=== PATIENT | female | born 1980 | race Asian ===

== ENCOUNTER 2019-06-04 09:37 | Outpatient (CLI) | payer BC | END 2019-06-04 23:59 | disposition home or self-care (01) | LOC: RAD 09:37 | PROVIDERS: ATTEND Family Medicine | DX: R05 Cough (principal); M47.819 Spondylosis without myelopathy or radiculopathy, site unspecified | CPT/HCPCS: 71046 ==

== ENCOUNTER 2020-06-14 16:14 | Outpatient (CLI) | payer BC | END 2020-06-14 23:59 | disposition home or self-care (01) | LOC: RAD 16:14 | PROVIDERS: ATTEND Family Medicine | DX: R05 Cough (principal); M47.814 Spondylosis without myelopathy or radiculopathy, thoracic region | CPT/HCPCS: 71046 ==

== ENCOUNTER 2022-09-28 12:15 | Inpatient (IN) | payer BC ==
[~2022-09-28] VITALS: Ht 154.9 cm; Wt 58.5 kg
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
[2022-09-28 17:45] VITALS: BP 136/91
[2022-09-28] MEDS ORDERED: ZINC50TA69 PO (18:15)
[2022-09-28] MEDS ORDERED: CHOL100043 PO (18:15)
[2022-09-28] MEDS ORDERED: BIOT1TAB PO (18:15)
[2022-09-28] MEDS ORDERED: AMLO-212 PO (18:15)
[2022-09-28] MEDS ORDERED: HYDROMORPHONE 1 MG/1 ML DISP.SYRIN IV ONE (18:30)
--- NOTE | 2022-09-28 19:15 | NUR ---
RN NOTE RECEIVED PT FOR CONTINUITY OF CARE. PATIENT A/OX4 IN NO S/SX OF ACUTE DISTRESS AT THIS TIME; CURRENTLY ON ROOM AIR WITH 02 SAT >95% AT THIS TIME.WITH IV ACCESS ON R HAND#20 AND L FA#20 BOTH PATENT, INTACT AND FLUSHING WELL. NOTED MULTIPLE SKIN BRUISES AND DISCOLORATION. S/P ORIF RIGHT FEMUR WITH RODDING 09/26/22 WITH SURGICAL INCISION WITH ARACELY INTACT WITH SEROUS DRAINING. WILL ENSURE SAFETY MEASURES WITHIN THE SHIFT. PATIENT BED ALARM IS ON. HEAD OF BED ELEVATED. BED IS LOCKED, IN LOWEST POSITION AND SIDE RAILS UP. CALL LIGHT WITHIN REACH OF THE PATIENT. WILL CONTINUE TO MONITOR AND REASSESS FOR ANY CHANGES AND WILL CARRY OUT ANY ONGOING AND ACTIVE MD ORDER.
[2022-09-28 20:00] VITALS: BP 122/98
[2022-09-28] MEDS ORDERED: ZOLPIDEM TARTRATE 5 MG TABLET PO PRN (20:00)
[2022-09-28] MEDS ORDERED: ONDANSETRON HCL/PF 4 MG/2 ML VIAL IVP PRN (20:00)
[2022-09-28] MEDS ORDERED: ACETAMINOPHEN 325 MG TABLET PO PRN (20:00)
[2022-09-28] MEDS ORDERED: MAGNESIUM HYDROXIDE 30 ML UDC PO PRN (20:00)
[2022-09-28] MEDS ORDERED: MAG HYDROX/AL HYDROX/SIMETH 30 ML UDC PO PRN (20:00)
[2022-09-28] MEDS ORDERED: Z GUARD REMEDY 4 OZ OINT TP PRN (20:00)
[2022-09-28] MEDS: HYDROMORPHONE INJ 2 MG/ML DISP.SYRIN IV PRN (22:42)
[2022-09-29 04:00] VITALS: BP 117/75
--- NOTE | 2022-09-29 04:00 | NUR ---
RN NOTE PATIENT REMAINED TO BE IN NO SIGNS OF ACUTE RESPIRATORY DISTRESS, SAFE ENVIRONMENT MAINTAINED FOR PT. AM PATIENT CARE ASSISTANCE RENDERED. WILL CONTINUE TO MONITOR AND REASSESS FOR ANY CHANGES THROUGHOUT THE SHIFT.
[2022-09-29] MEDS: HYDROMORPHONE INJ 2 MG/ML DISP.SYRIN IV PRN ×4 (04:40→20:01)
--- NOTE | 2022-09-29 06:27 | NUR ---
RN NOTE PATIENT REMAINS IN ROOM IN NO SIGNS OF RESPIRATORY DISTRESS, PATIENT STILL ON ROOM AIR; TOLERATING WELL SATURATING @ >95% SP02. ON REGULAR DIET. SURGICAL SITE REMAIN SECURED AND INTACT NO SIGNS OF BLEEDING AND INFECTION. WITH PUREWICK CONNECTED TO SUCTION. SAFETY MEASURES IMPLEMENTED, BED IN LOWEST POSITION, LOCKED, SIDE RAILS UP, CALL LIGHT WITHIN REACH. ALL NEEDS AND ORDERS ADDRESSED DURING THE SHIFT. IV ACCESS MAINTAINED INTACT, SECURED AND FLUSHING WELL. ALL DUE MEDS GIVEN ORDERED & SCHEDULED, PRN PAIN MEDICATION GIVEN ; PATIENT TOLERATED WELL. PATIENT KEPT CLEAN AND COMFORTABLE WITHIN THE SHIFT. PLAN: ROUTINE VITALS SIGNS, PAIN MGT, NWB FOR NOW, FOR PODIATRY CONSULT, AND AM LABS. PATIENT ENDORSED TO INCOMING SHIFT RN WITH STABLE VITAL SIGN AND FOR CONTINUITY OF CARE.
[2022-09-29 06:55] LABS: BASOPHILS # (AUTO) 0.1 K/uL (0.0-0.2); BASOPHILS % (AUTO) 0.7 % (0.0-2.0); EOSINOPHILS % (AUTO) 5.4 % (0.0-6.0); HEMATOCRIT 35 % (33-45); HEMOGLOBIN 11.6 g/dL (11.5-14.8); LYMPHOCYTES # (AUTO) 1.8 K/uL (0.8-4.8); LYMPHOCYTES % (AUTO) 14.9 % (20.0-44.0); MEAN CORPUSCULAR HGB CONC 33 g/dl (31.0-36.0); MEAN CORPUSCULAR VOLUME 89 fL (82-100); MONOCYTES # (AUTO) 1.3 K/uL (0.1-1.30); MONOCYTES % (AUTO) 10.1 % (2.0-12.0); NEUTROPHILS # (AUTO) 8.5 K/uL (1.8-8.9); NEUTROPHILS % (AUTO) 68.9 % (43.0-81.0); PLATELET COUNT (AUTO) 303 K/uL (150-450); RED BLOOD CELL COUNT(AUTO) 3.94 MIL/uL (4.0-5.2); WHITE BLOOD COUNT (AUTO) 12.4 K/uL (4.3-11.0)
[2022-09-29 07:04] LABS: CALCIUM, SERUM 8.7 mg/dL (8.5-10.1); CREATININE 0.5 mg/dL (0.6-1.3); POTASSIUM 4.1 mmol/L (3.5-5.1)
--- NOTE | 2022-09-29 07:38 | NUR ---
RN OPENING NOTES RECEIVED PATIENT IN BED AWAKE, ALERT AND VERBALLY RESPONSIVE, DENIES ANY PAIN AT THIS MOMENT. REMAINS IN ROOM IN NO SIGNS OF RESPIRATORY DISTRESS, PATIENT STILL ON ROOM AIR; TOLERATING WELL SATURATING @ >95% SP02. ON REGULAR DIET. SURGICAL SITE REMAIN SECURED AND INTACT NO SIGNS OF BLEEDING AND INFECTION. WITH PUREWICK CONNECTED TO SUCTION. SAFETY MEASURES IMPLEMENTED, BED IN LOWEST POSITION, LOCKED, SIDE RAILS UP, CALL LIGHT WITHIN REACH. IV ACCESS MAINTAINED INTACT, SECURED AND FLUSHING WELL. NWB FOR NOW, FOR PODIATRY CONSULT. PLAN OF CARE CONTINUE.
[2022-09-29] MEDS: PANTOPRAZOLE 40 MG TABLET.DR PO SCH (07:44)
[2022-09-29] MEDS: DOCUSATE SODIUM 100 MG CAPSULE PO SCH ×2 (08:02→16:08)
--- NOTE | 2022-09-29 08:35 | NUR ---
WOUND CARE CONSULT: PT PRESENTS WITH DRY FACIAL ABRASIONS, DRY ABRASIONS TO RT ARM, MIDBACK ABRASION, AREAS OF SKIN DISCOLORATION AND BILATERAL LOWER EXTREMITY ORTHOPEDIC SPLINT DRESSINGS, ALL PRESENT ON ADMISSION. RECOMMENDATIONS MADE FOR SKIN PROTECTION. DISCUSSED WITH NURSING STAFF. PT IS ON IRVIN ISOFLEX LOW AIRLOSS BED. DR HENSLEY AND DR ROPER CALLED FOR SURGICAL AND DPM CONSULTS. MD IN AGREEMENT WITH PLAN OF CARE.
--- NOTE | 2022-09-29 10:30 | NUR ---
NOTED RIGHT HIP INCISION SITE WITH SANGUINEOUS DRAINAGE AND DRESSING IS SATURATED, INFORMED [employer] MEDICAL STAFF SERVICES MANAGER WITH ORDER TO LET WOUND CARE ASSESS THE INCISION SITE. INFORMED QUINTEN CAMPOS. QUINTEN CAMPOS SEEN THE PATIENT,REMOVED THE DRESSING, NOTED ARACELY INTACT, WITH ORDER TO CHANGED DRESSING AND PRN. DR. CASTANEDA AT THE BEDSIDE,WITH ORDER TO DO STAT CT OF THE RIGHT LOWER EXTREMITY, NOTED AND CARRIED OUT.
[2022-09-29] MEDS: IV LR 1000 ML 1,000 ML IV PRN (10:44)
[2022-09-29 12:00] VITALS: BP 131/95
--- NOTE | 2022-09-29 15:21 | NUR ---
URINE COLLECTED FOR TEST, CALLED LAB FOR VOCATIONAL REHABILITATION COUNSELOR
[2022-09-29] MEDS: HYDROCODONE/APAP 5/325MG TABLET PO PRN (15:46)
--- NOTE | 2022-09-29 18:18 | NUR ---
INFORMED TONYA INFORMATION CLERK [employer] THAT PATIENT'S PIV IS BOTH NOW WORKING STILL WAITING FOR MIDLINE INSERTION, WITH ORDER TO X1 NOW DILAUDID PO 1MG, NOTED AND CARRIED OUT.
[2022-09-29] MEDS ORDERED: HYDROMORPHONE HCL 2 MG TABLET PO ONE ×2 (18:30)
--- NOTE | 2022-09-29 18:37 | NUR ---
RN CLOSING NOTES PATIENT IN BED AWAKE, ALERT AND VERBALLY RESPONSIVE, VISITOR AT THE BEDSIDE. REMAINS IN ROOM IN NO SIGNS OF RESPIRATORY DISTRESS, PATIENT STILL ON ROOM AIR; TOLERATING WELL SATURATING @ >95% SP02. ON REGULAR DIET. RIGHT HIP SURGICAL SITE DRESSING NOTED C/D/I. BILATERAL LOWER EXTREMITY DRESSING C/D/I. NOTED WITH PUREWICK CONNECTED TO SUCTION. STILL WAITING FOR MIDLINE INSERTION. PATIENT C/O OF 10/10 GENERALIZED PAIN, 1 TIME DILAUDID 1MG PO GIVEN, WILL ENDORSE TO NIGHT NURSE FOR EFFECTIVENES. SAFETY MEASURES IMPLEMENTED, BED IN LOWEST POSITION, LOCKED, SIDE RAILS UP, CALL LIGHT WITHIN REACH. WILL ENDORSE TO NIGHT NURSE FOR ELIZABETH.
--- NOTE | 2022-09-29 19:13 | NUR ---
RN NOTE RECEIVED PT FOR CONTINUITY OF CARE. PATIENT A/OX4 IN NO S/SX OF ACUTE DISTRESS AT THIS TIME; CURRENTLY ON ROOM AIR WITH 02 SAT >95% AT THIS TIME.WITH IV ACCESS ON R HAND#[address] NEW IV ACCESS. NOTED MULTIPLE SKIN BRUISES AND DISCOLORATION. S/P ORIF RIGHT FEMUR WITH RODDING 09/26/22 WITH SURGICAL INCISION WITH ARACELY INTACT WITH SEROUS DRAINING. WILL ENSURE SAFETY MEASURES WITHIN THE SHIFT. PATIENT BED ALARM IS ON. HEAD OF BED ELEVATED. BED IS LOCKED, IN LOWEST POSITION AND SIDE RAILS UP. CALL LIGHT WITHIN REACH OF THE PATIENT. WILL CONTINUE TO MONITOR AND REASSESS FOR ANY CHANGES AND WILL CARRY OUT ANY ONGOING AND ACTIVE MD ORDER.
[2022-09-29 20:00] VITALS: BP 120/75
[2022-09-29] MEDS: ENOXAPARIN SODIUM 40 MG/0.4 ML DISP.SYRIN SQ SCH (20:02)
[2022-09-29] MEDS: NEOMY SULF/BACITRAC ZN/POLY 15 GM TUBE TP SCH (21:30)
[2022-09-30 04:00] VITALS: BP 106/74
[2022-09-30] MEDS: HYDROMORPHONE INJ 2 MG/ML DISP.SYRIN IV PRN ×5 (06:28→20:19)
[2022-09-30] MEDS: IV LR 1000 ML 1,000 ML IV PRN (06:32)
--- NOTE | 2022-09-30 06:37 | NUR ---
RN NOTE PATIENT REMAINS IN ROOM IN NO SIGNS OF RESPIRATORY DISTRESS, PATIENT STILL ON ROOM AIR; TOLERATING WELL SATURATING @ >95% SP02. ON REGULAR DIET. SURGICAL SITE REMAIN SECURED AND INTACT NO SIGNS OF BLEEDING AND INFECTION. WITH PUREWICK CONNECTED TO SUCTION. SAFETY MEASURES IMPLEMENTED, BED IN LOWEST POSITION, LOCKED, SIDE RAILS UP, CALL LIGHT WITHIN REACH. ALL NEEDS AND ORDERS ADDRESSED DURING THE SHIFT. IV ACCESS MAINTAINED INTACT, SECURED AND FLUSHING WELL. ALL DUE MEDS GIVEN ORDERED & SCHEDULED, PRN PAIN MEDICATION GIVEN ; PATIENT TOLERATED WELL. PATIENT KEPT CLEAN AND COMFORTABLE WITHIN THE SHIFT. PLAN FOR SURGERY ON SUNDAY ORIF. PATIENT ENDORSED TO INCOMING SHIFT RN WITH STABLE VITAL SIGN AND FOR CONTINUITY OF CARE.
--- NOTE | 2022-09-30 07:00 | NUR ---
RECEIVED REPORT FROM NIGHTSHIFT RN. PATIENT REMAINS IN ROOM, FAMILY MEMBER AT BEDSIDE. BREATHING EVENLY AND UNLABORED ON ROOM AIR. PATIENT REPORTS OF PAIN. EXPLAINED THAT PAIN MEDS ARE TO BE GIVEN EVERY 4 HOURS NEEDED, EXPLAINED THAT SOONEST AVAILABLE ADMINISTRATION WILL BE AT 0745. PATIENT VERBALIZED UNDERSTANDING. RIGHT FOOT CAST INTACT. SAFETY MEASURES IMPLEMENTED. WILL CONTINUE PLAN OF CARE AND ANTICIPATE NEEDS.
[2022-09-30] MEDS: PANTOPRAZOLE 40 MG TABLET.DR PO SCH (07:49)
[2022-09-30] MEDS: DOCUSATE SODIUM 100 MG CAPSULE PO SCH ×2 (08:02→16:15)
[2022-09-30] MEDS: NEOMY SULF/BACITRAC ZN/POLY 15 GM TUBE TP SCH (08:03)
[2022-09-30 16:00] VITALS: BP 143/94
--- NOTE | 2022-09-30 18:40 | NUR ---
PATIENT REMAINS IN STABLE CONDITION. ALL DUE MEDICATIONS ADMINISTERED. FAMILY AT BEDSIDE. WILL ENDORSE TO NIGHTSHIFT RN FOR CONTINUATION OF CARE.
--- NOTE | 2022-09-30 19:15 | NUR ---
RN NOTE RECEIVED PT FOR CONTINUITY OF CARE. PATIENT A/OX4 IN NO S/SX OF ACUTE DISTRESS AT THIS TIME; CURRENTLY ON ROOM AIR WITH 02 SAT >95% AT THIS TIME. FAMILY AT BEDSIDE. WITH IV ACCESS ON R UA ML AND L FA#22 BOTH PATENT, INTACT AND FLUSHING WELL. IV FLUID RUNNING ORDERED. NOTED MULTIPLE SKIN BRUISES AND DISCOLORATION. S/P ORIF RIGHT FEMUR WITH RODDING 09/26/22 WITH SURGICAL INCISION WITH ARACELY INTACT WITH SEROUS DRAINING. WILL ENSURE SAFETY MEASURES WITHIN THE SHIFT. PATIENT BED ALARM IS ON. HEAD OF BED ELEVATED. BED IS LOCKED, IN LOWEST POSITION AND SIDE RAILS UP. CALL LIGHT WITHIN REACH OF THE PATIENT. WILL CONTINUE TO MONITOR AND REASSESS FOR ANY CHANGES AND WILL CARRY OUT ANY ONGOING AND ACTIVE MD ORDER.
[2022-09-30 20:00] VITALS: BP 135/91
[2022-09-30] MEDS: ENOXAPARIN SODIUM 40 MG/0.4 ML DISP.SYRIN SQ SCH (20:19)
[2022-10-01] MEDS: HYDROMORPHONE INJ 2 MG/ML DISP.SYRIN IV PRN ×5 (01:27→21:17)
[2022-10-01] MEDS: IV LR 1000 ML 1,000 ML IV PRN ×2 (01:31→17:17)
[2022-10-01 04:00] VITALS: BP 123/63
--- NOTE | 2022-10-01 07:52 | NUR ---
RN OPENING NOTE RECEIVED PATIENT IN BED, AO X 4. ABLE TO RESPONDS ALL PHYSICAL STIMULI. RESPIRATORY EVEN AND UNLABORED IN ROOM AIR, IN NO ACUTE RESPIRATORY DISTRESS OBSERVED. SKIN IS WARM TO TOUCH, KEEP CLEAN/DRY. KEPT ELEVATED HOB FOR ASPIRATION PRECAUTION AND ENSURE AIRWAY, ALSO LOWEST BED POSITIONED. BED ALARM IS ON AT ALL TIMES FOR SAFETY. CALL LIGHT WITHIN REACH, WILL CONTINUE TO MONITOR.
[2022-10-01] MEDS: DOCUSATE SODIUM 100 MG CAPSULE PO SCH ×2 (08:15→16:32)
[2022-10-01] MEDS: PANTOPRAZOLE 40 MG TABLET.DR PO SCH (08:15)
[2022-10-01] MEDS: NEOMY SULF/BACITRAC ZN/POLY 15 GM TUBE TP SCH (08:18)
[2022-10-01] MEDS: HYDROCODONE/APAP 5/325MG TABLET PO PRN (15:10)
[2022-10-01 16:00] VITALS: BP 133/92
--- NOTE | 2022-10-01 18:00 | NUR ---
RN CLOSING NOTE PATIENT RESTING IN BED. IN NO ACUTE DISTRESS OBSERVED. RESPIRATORY EVEN AND UNLABORED IN ROOM AIR. SKIN IS WARM TO TOUCH KEEP CLEAN/DRY. KEPT ELEVATED HOB FOR ENSURE AIRWAY/ASPIRATION PRECAUTION, AND LOWEST BED POSITION. BED ALARM IS ON ALL TIMES FOR SAFETY. CALL LIGHT WITHIN REACH, WILL ENDORSE GLOBAL SOURCING MANAGER.
--- NOTE | 2022-10-01 19:42 | NUR ---
RN MS OPENING NOTES RECEIVED PATIENT IN BED, A/O X 4 AWAKE AND COHERENT ABLE TO VERBALIZED NEEDS, ON MODERATE HIGH BACK REST POSITION. ON ROOM AIR NO COMPLAIN OF SOB/ SATURATING WELL. WITH PUREWICK CONNECTED TO SUCTION MACHINE NOTED URINE OUTPUT. PATIENT IS ON BED REST FOR NOW. SURGICAL SITE ON BOTH HIPS ASSESSED AND NO ACTIVE BLEEDING NOTED, KEPT LOWER EXTREMITIES ELEVATED. ON REGULAR DIET ON ASPIRATION NOTED. KEPT BED ON LOWER LOCKED POSITION, KEPT SIDE RAILS UP X 2 ALL THE TIME, KEPT CALL LIGHT WITHIN AT REACH. SAFETY PRECAUTIONS MAINTAINED, WILL CONTINUE TO MONITOR.
[2022-10-01] MEDS: ENOXAPARIN SODIUM 40 MG/0.4 ML DISP.SYRIN SQ SCH (20:09)
[2022-10-02] VITALS: BP 133/92
[2022-10-02] MEDS: HYDROMORPHONE INJ 2 MG/ML DISP.SYRIN IV PRN ×3 (01:45→11:13)
[2022-10-02] MEDS: HYDROCODONE/APAP 5/325MG TABLET PO PRN ×2 (04:59→11:24)
--- NOTE | 2022-10-02 06:43 | NUR ---
RN MS CLOSING NOTES PATIENT IS IN BED, A/O X 4 AWAKE AND COHERENT ABLE TO VERBALIZED NEEDS, ON MODERATE HIGH BACK REST POSITION. ON ROOM AIR NO COMPLAIN OF SOB/ SATURATING WELL. WITH PUREWICK CONNECTED TO SUCTION MACHINE NOTED URINE OUTPUT. PATIENT IS ON BED REST FOR NOW. SURGICAL SITE ON BOTH HIPS ASSESSED AND NO ACTIVE BLEEDING NOTED, KEPT LOWER EXTREMITIES ELEVATED. ON REGULAR DIET ON ASPIRATION NOTED.ALL DUE MEDICATIONS GIVEN, ALL NEEDS ATTENDED. PAIN MEDICATIONS GIVEN NEEDED FOR PAIN, PM CARE RENDERED, KEPT BED ON LOWER LOCKED POSITION, KEPT SIDE RAILS UP X 2 ALL THE TIME, KEPT CALL LIGHT WITHIN AT REACH. SAFETY PRECAUTIONS MAINTAINED, WILL ENDORSED TO NEXT SHIFT FOR ELIZABETH.
--- NOTE | 2022-10-02 07:54 | NUR ---
RN MS OPENING NOTES PATIENT IS IN BED, A/O X 4 AWAKE AND COHERENT ABLE TO VERBALIZED NEEDS, ON ROOM AIR NO COMPLAIN OF SOB SATURATING WELL. WITH PUREWICK CONNECTED TO SUCTION MACHINE NOTED URINE OUTPUT. PATIENT IS ON BED REST FOR NOW. SURGICAL SITE ON RIGHT HIP ASSESSED AND NO ACTIVE BLEEDING NOTED, KEPT LOWER EXTREMITIES ELEVATED. KEPT BED ON LOWER LOCKED POSITION, KEPT SIDE RAILS UP X 2 ALL THE TIME, KEPT CALL LIGHT WITHIN AT REACH. SAFETY PRECAUTIONS MAINTAINED.PLAN OF CARE CONTINUE.
[2022-10-02 08:00] VITALS: BP 127/96
[2022-10-02] MEDS: NEOMY SULF/BACITRAC ZN/POLY 15 GM TUBE TP SCH (08:11)
[2022-10-02] MEDS: DOCUSATE SODIUM 100 MG CAPSULE PO SCH ×2 (08:16→16:16)
[2022-10-02] MEDS: PANTOPRAZOLE 40 MG TABLET.DR PO SCH (08:16)
[2022-10-02 12:44] LABS: BASOPHILS # (AUTO) 0.1 K/uL (0.0-0.2); BASOPHILS % (AUTO) 1.1 % (0.0-2.0); EOSINOPHILS % (AUTO) 3.7 % (0.0-6.0); HEMATOCRIT 35 % (33-45); HEMOGLOBIN 11.7 g/dL (11.5-14.8); LYMPHOCYTES # (AUTO) 1.5 K/uL (0.8-4.8); LYMPHOCYTES % (AUTO) 16.1 % (20.0-44.0); MEAN CORPUSCULAR HGB CONC 33 g/dl (31.0-36.0); MEAN CORPUSCULAR VOLUME 89 fL (82-100); MONOCYTES % (AUTO) 10.9 % (2.0-12.0); NEUTROPHILS # (AUTO) 6.5 K/uL (1.8-8.9); NEUTROPHILS % (AUTO) 68.2 % (43.0-81.0); PLATELET COUNT (AUTO) 526 K/uL (150-450); RED BLOOD CELL COUNT(AUTO) 3.91 MIL/uL (4.0-5.2); WHITE BLOOD COUNT (AUTO) 9.5 K/uL (4.3-11.0)
[2022-10-02 12:59] LABS: ALBUMIN 2.9 g/dL (3.4-5.0); BILIRUBIN,TOTAL 0.9 mg/dL (0.2-1.0); CALCIUM, SERUM 9.2 mg/dL (8.5-10.1); CREATININE 0.5 mg/dL (0.6-1.3); POTASSIUM 4.1 mmol/L (3.5-5.1); TOTAL PROTEIN, SERUM 6.7 g/dL (6.4-8.2)
[2022-10-02] MEDS: HYDROCODONE/APAP 10/325MG TABLET PO PRN ×2 (15:40→20:45)
[2022-10-02 16:00] VITALS: BP 145/95
[2022-10-02] MEDS: AMLODIPINE BESYLATE 5 MG TABLET PO SCH (16:16)
--- NOTE | 2022-10-02 18:28 | NUR ---
RN MS CLOSING NOTES PATIENT IS IN BED, A/O X 4 AWAKE AND COHERENT ABLE TO VERBALIZED NEEDS, ON ROOM AIR NO COMPLAIN OF SOB SATURATING WELL. WITH PUREWICK CONNECTED TO SUCTION MACHINE NOTED URINE OUTPUT. PATIENT IS ON BED REST FOR NOW. SURGICAL SITE ON RIGHT HIP ASSESSED AND NO ACTIVE BLEEDING NOTED, KEPT LOWER EXTREMITIES ELEVATED.FADI MIDLINE NOTED PATENT AND INTACT FLUSHES WELL WITH IV FLUIDS RUNNING. RLE ELEVATED. KEPT BED ON LOWER LOCKED POSITION, KEPT SIDE RAILS UP X 2 ALL THE TIME, KEPT CALL LIGHT WITHIN AT REACH. SAFETY PRECAUTIONS MAINTAINED. WILL ENDORSE TO NIGHT NURSE FOR ELIZABETH.
[2022-10-02 20:00] VITALS: BP 135/80
[2022-10-02] MEDS: SENNOSIDES 8.6 MG TABLET PO SCH (21:16)
[2022-10-02] MEDS: ENOXAPARIN SODIUM 40 MG/0.4 ML DISP.SYRIN SQ SCH (21:21)
[2022-10-03] MEDS: MORPHINE SULFATE INJ 4 MG/ML DISP.SYRIN IV PRN (01:54)
[2022-10-03 04:00] VITALS: BP 118/77
[2022-10-03] MEDS: HYDROCODONE/APAP 10/325MG TABLET PO PRN ×4 (05:50→20:22)
--- NOTE | 2022-10-03 06:22 | NUR ---
END OF SHIFT, PATIENT IN BED, A/O X4, AT ROOM AIR, NO SOB/ACUTE DISTRESS DURING THE NIGHT, AT BEDSIDE, ON PAIN MANAGEMENT, CONTINUE ON IV FLUIDS ORDERED, DRESSING INTACT, PLAN TO DO SURGERY FOR RIGHT FOOT FOR COMPLEX METATARSAL FX, ALL SAFETY PRECAUTIONS IN PLACE, CALL LIGHT W/I REACH, WILL ENDORSE CONTINUITY OF CARE TO ONCOMING NURSE.
--- NOTE | 2022-10-03 07:10 | NUR ---
FIELD COIL WINDER OPENING NOTE PATIENT A/A/0X4, PATIENT DENIES PAIN AT PRESENT. ON ROOM AIR O2 SAT 99%. NO S/S OF RESPIRATORY DISTRESS NOTED. RIGHT LEG ELEVATED, PULSES PRESENT. FADI MID LINE INTACT INFUSING LR AT 50ML/HR. SAFETY MEASURES IN PLACE, BED LOCKED TO THE LOWEST POSITION. CALL LIGHT AND TABLE WITHIN REACH. CONT. TO MONITOR.
[2022-10-03] MEDS: IV LR 1000 ML 1,000 ML IV PRN (08:35)
[2022-10-03] MEDS: PANTOPRAZOLE 40 MG TABLET.DR PO SCH (08:56)
[2022-10-03] MEDS: ZINC SULFATE 220 MG CAPSULE PO SCH (08:57)
[2022-10-03] MEDS: DOCUSATE SODIUM 100 MG CAPSULE PO SCH ×2 (08:57→18:00)
[2022-10-03] MEDS: AMLODIPINE BESYLATE 5 MG TABLET PO SCH ×2 (08:57→17:59)
[2022-10-03] MEDS: NEOMY SULF/BACITRAC ZN/POLY 15 GM TUBE TP SCH (08:58)
[2022-10-03] MEDS: CHOLECALCIFEROL 1,000 UNIT TABLET (VIT D3) PO SCH (08:58)
[2022-10-03] MEDS ORDERED: Medication Not On Formulary EA (Biotin 1 MG) PO SCH (09:00)
--- NOTE | 2022-10-03 10:20 | NUR ---
HOME IMPROVEMENT INSTALLER NOTE PATIENT C/O RIGHT LEG PAIN LEVEL (5) IN SCALE (0-10). PATIENT WILL HAVE PHYSICAL THERAPY IN THIRTY MINUTES. NORCO GIVEN AT PRESENT DIRECTED. CONT. TO MONITOR.
[2022-10-03 12:00] VITALS: BP 131/89
--- NOTE | 2022-10-03 19:00 | NUR ---
COPING MACHINE ASSEMBLER CLOSING NOTE PATIENT A/A/OX4, ON ROOM AIR SAT 98% NO S/S OF RESPIRATORY DISTRESS NOTED. RIGHT LEG ELEVATED PATIENT WILL GO FOR ORIF RIGHT FOOT TOMORROW, CONSENT SIGNED. NPO AFTER MID-NIGHT. SURGERY WILL BE AT 10 AM. PATIENT IS ON BED REST. PERIPAD TO SUCTION FOR URINE. PATIENT DENIES PAIN AT PRESENT. PATIENT HAD NORCO FOR PAIN AT 15:30 ORDERED [id number] PRN. FADI MID LINE IVF LR AT 75CC/HR. SAFETY MEASURES IN PLACE. BED TO THE LOWEST POSITION, CALL LIGHT, TABLE AND BED LAZARO WITHIN REACH. I WILL ENDORSE TO THE FOLLOWING NURSE.
--- NOTE | 2022-10-03 19:45 | NUR ---
RN MS CLOSING NOTE RECEIVED PATIENT AWAKE, IN BED. PT A/O X 4, ABLE TO VERBALIZED NEEDS. ON ROOM AIR NO COMPLAIN OF SOB, TOLERATING RA WELL. WITH PUREWICK CONNECTED TO SUCTION MACHINE NOTED URINE OUTPUT. PATIENT IS ON BED REST. SURGICAL SITE TO RIGHT HIP ASSESSED AND NO ACTIVE BLEEDING NOTED, KEPT LOWER EXTREMITIES ELEVATED. RIGHT UA MIDLINE NOTED PATENT AND INTACT FLUSHES WELL, WITH LR INFUSING AT 50 ML/HR. RIGHT LE ELEVATED. SAFETY MEASURES MAINTAINED: BED ON LOWER LOCKED POSITION, KEPT SIDE RAILS UP X 2, CALL LIGHT WITHIN REACH. WILL CONTINUE TO MONITOR PT.
[2022-10-03 20:00] VITALS: BP 142/97
[2022-10-03] MEDS: ENOXAPARIN SODIUM 40 MG/0.4 ML DISP.SYRIN SQ SCH (20:00)
--- NOTE | 2022-10-03 20:00 | NUR ---
MS RN NOTE PT REFUSES TO TAKE SENOKOT. BENEFITS OF TAKING THIS MED EXPLAINED TO PT.
--- NOTE | 2022-10-03 20:00 | NUR ---
MS RN NOTE LOVENOX HELD BECAUSE PT IS SCHEDULED FOR ORIF OF RIGHT FOOT TOMORROW IN AM.
--- NOTE | 2022-10-03 20:22 | NUR ---
MS RN NOTE PT REPORTS PAIN TO BILATERAL LEGS. NORCO ADMINISTERED TO PT.
[2022-10-03] MEDS: SENNOSIDES 8.6 MG TABLET PO SCH (22:00)
[2022-10-04] MEDS: HYDROCODONE/APAP 10/325MG TABLET PO PRN ×3 (00:49→21:35)
--- NOTE | 2022-10-04 00:49 | NUR ---
MS RN NOTE PT REPORTS PAIN TO BILATERAL LEGS. NORCO ADMINISTERED TO PT.
[2022-10-04] MEDS: IV LR 1000 ML 1,000 ML IV PRN (00:50)
[2022-10-04 04:00] VITALS: BP 123/85
[2022-10-04 05:45] LABS: BASOPHILS # (AUTO) 0.1 K/uL (0.0-0.2); BASOPHILS % (AUTO) 0.7 % (0.0-2.0); EOSINOPHILS % (AUTO) 3.6 % (0.0-6.0); HEMATOCRIT 35 % (33-45); HEMOGLOBIN 11.6 g/dL (11.5-14.8); LYMPHOCYTES # (AUTO) 2.2 K/uL (0.8-4.8); LYMPHOCYTES % (AUTO) 21.1 % (20.0-44.0); MEAN CORPUSCULAR HGB CONC 33 g/dl (31.0-36.0); MEAN CORPUSCULAR VOLUME 90 fL (82-100); MONOCYTES # (AUTO) 0.8 K/uL (0.1-1.30); MONOCYTES % (AUTO) 8.1 % (2.0-12.0); NEUTROPHILS # (AUTO) 6.8 K/uL (1.8-8.9); NEUTROPHILS % (AUTO) 66.5 % (43.0-81.0); PLATELET COUNT (AUTO) 565 K/uL (150-450); RED BLOOD CELL COUNT(AUTO) 3.84 MIL/uL (4.0-5.2); WHITE BLOOD COUNT (AUTO) 10.2 K/uL (4.3-11.0)
[2022-10-04 06:33] LABS: CALCIUM, SERUM 8.8 mg/dL (8.5-10.1); CREATININE 0.5 mg/dL (0.6-1.3); MAGNESIUM 2.4 mg/dL (1.8-2.4); PHOSPHORUS 4.2 mg/dL (2.5-4.9)
--- NOTE | 2022-10-04 06:45 | NUR ---
RN MS CLOSING NOTE LEFT PATIENT AWAKE, IN BED. PT A/O X 4, ABLE TO VERBALIZED NEEDS. ON ROOM AIR NO COMPLAIN OF SOB, TOLERATING RA WELL. WITH PUREWICK CONNECTED TO SUCTION MACHINE NOTED 1600 ML OF URINE OUTPUT. PATIENT IS ON BEDREST. SURGICAL SITE TO RIGHT HIP. KEPT LOWER EXTREMITIES ELEVATED. RIGHT UA MIDLINE NOTED PATENT AND INTACT FLUSHES WELL, WITH LR INFUSING AT 50 ML/HR. RIGHT LE ELEVATED. PT IS NPO SINCE MIDNIGHT D/T SURGERY ORIF OF R FOOT SCHEDULED FOR THIS AM. SAFETY MEASURES MAINTAINED: BED ON LOWER LOCKED POSITION, KEPT SIDE RAILS UP X 2, CALL LIGHT WITHIN REACH. WILL ENDORSE PT TO AM RN FOR ELIZABETH.
--- NOTE | 2022-10-04 07:05 | NUR ---
MS RN OPENING NOTES: PATIENT A/A/0X4, PATIENT DENIES PAIN AT PRESENT. ON ROOM AIR O2 SAT 99%. NO S/S OF RESPIRATORY DISTRESS NOTED. RIGHT LEG ELEVATED, PULSES PRESENT. FADI MID LINE INTACT INFUSING LR AT 50ML/HR. SAFETY MEASURES IN PLACE, BED LOCKED TO THE LOWEST POSITION. CALL LIGHT AND TABLE WITHIN REACH. PT IS NPO FOR SURGERY ORIF OF RIGHT FOOT, REFUSING IV MORPHINE SAYING SHE WANT PO MAE NOTIFIED HER THAT SHE IS NPO FOR THE PROCEDURE SHE SAID SHE WILL WAIT UNTIL SHE TALK TO HER DOCTOR, WILL CONT. TO MONITOR.
[2022-10-04] MEDS: PANTOPRAZOLE 40 MG TABLET.DR PO SCH (07:30)
[2022-10-04] MEDS ORDERED: POLYMYXIN B SULFATE 0 UNITS ONE (07:57)
[2022-10-04] MEDS ORDERED: BUPIVACAINE 0.5 % PF 150 MG/30 ML VIAL ONE (07:57)
[2022-10-04] MEDS ORDERED: LIDOCAINE 1% INJ 50 ML MDV IJ ONE (07:57)
[2022-10-04] MEDS: AMLODIPINE BESYLATE 5 MG TABLET PO SCH ×2 (09:00→17:24)
[2022-10-04] MEDS: DOCUSATE SODIUM 100 MG CAPSULE PO SCH ×3 (09:00→17:24)
[2022-10-04] MEDS: CHOLECALCIFEROL 1,000 UNIT TABLET (VIT D3) PO SCH (09:00)
[2022-10-04] MEDS: NEOMY SULF/BACITRAC ZN/POLY 15 GM TUBE TP SCH (09:00)
[2022-10-04] MEDS: ZINC SULFATE 220 MG CAPSULE PO SCH (09:00)
[2022-10-04] MEDS ORDERED: ANESTHESIA TRAY IN PYXIS 1 EA TRAY MC ONE (09:13)
--- NOTE | 2022-10-04 09:30 | NUR ---
RN NOTES: PT PICKED UP BY SURGERY STAFF FOR SURGERY, FAMILY AT BEDSIDE AWARE
[2022-10-04] MEDS ORDERED: SCOPOLAMINE PATCH 1 MG/72HR TD ONE (09:54)
[2022-10-04] MEDS ORDERED: KETAMINE HCL (500MG/10ML) 50 MG/ML VIAL ONE (09:55)
[2022-10-04] MEDS ORDERED: HYDROMORPHONE INJ 2 MG/ML DISP.SYRIN ONE (09:55)
[2022-10-04] MEDS ORDERED: ROPIVACAINE HCL 0.5% 5 MG/ML 30ML VIAL ONE (09:55)
[2022-10-04] MEDS ORDERED: MIDAZOLAM HCL 2 MG/2ML VIAL ONE (09:56)
[2022-10-04] MEDS ORDERED: ROCURONIUM BROMIDE 50 MG/5 ML ONE (09:56)
[2022-10-04] MEDS ORDERED: PANTOPRAZOLE 40 MG VIAL IV ONE ×2 (10:39→11:00)
[2022-10-04] MEDS ORDERED: HYDROGEN PEROXIDE 480 ML BOTTLE ONE (13:45)
[2022-10-04] MEDS ORDERED: methylPREDNISolone ACETATE 40 MG/ML VIAL ONE (13:50)
[2022-10-04] MEDS ORDERED: MEPERIDINE25 MG SYR 25 MG/ML VIAL ONE (13:51)
[2022-10-04 17:00] VITALS: BP 123/85
--- NOTE | 2022-10-04 17:00 | NUR ---
RN NOTES: PT IS BACK FROM SURGERY ALERT AND ORIENTED X 4 NOT IN ANY DISTRESS, ON OXYGEN 3 LITER VIA NASAL CANULA, PER DR CORDERO RESUME LOVENOX TOMORROW MORNING, PER DR ALISTAIR PADILLA OK TO GIVE IV PANTOPRAZOLE NOW,WILL MONITOR. PT CAN EAT AND RESUME ALL PREVIOUS ORDERS
--- NOTE | 2022-10-04 19:30 | NUR ---
RN MS CLOSING NOTE PATIENT AWAKE, IN BED. PT A/O X 4, ABLE TO VERBALIZED NEEDS. ON ROOM AIR NO COMPLAIN OF SOB, TOLERATING RA WELL. WITH PUREWICK CONNECTED TO SUCTION MACHINE OF URINE OUTPUT. PATIENT IS ON BEDREST. SURGICAL SITE TO RIGHT HIP. KEPT LOWER EXTREMITIES ELEVATED. RIGHT UA MIDLINE NOTED PATENT AND INTACT FLUSHES WELL, WITH LR INFUSING AT 50 ML/HR. RIGHT LE ELEVATED. SAFETY MEASURES MAINTAINED: BED ON LOWER LOCKED POSITION, KEPT SIDE RAILS UP X 2, CALL LIGHT WITHIN REACH.ENDORSED PT TO MINING CAPTAIN RN FOR ELIZABETH.
[2022-10-04 20:00] VITALS: BP 134/87
--- NOTE | 2022-10-04 20:00 | NUR ---
RN MS OPENING NOTE RECEIVED PATIENT AWAKE, IN BED. A/O X 4, ABLE TO VERBALIZED NEEDS. ON 2LITERS OF 02 VIA NC . NO COMPLAIN OF SOB, TOLERATING WELL. AT BEDSIDE UPDATED WITH PTS CONDITION .WITH PUREWICK CONNECTED TO SUCTION MACHINE OF URINE OUTPUT. S/P ORIF ON RIGHT FOOT ,DRESSING DRY INTACT NO BLEEDING NOTED , PTS ABLE TO MOVE HER TOES WITH SENSATION WITH GOOD CIRCULATION , PATIENT IS ON BEDREST. SURGICAL SITE TO RIGHT HIP.INTACT , KEPT BOTH LOWER EXTREMITIES ELEVATED. RIGHT UA MIDLINE NOTED PATENT AND INTACT FLUSHES WELL, WITH LR INFUSING AT 50 ML/HR. PAIN MEDICATION GIVEN ORDERED . SAFETY MEASURES MAINTAINED: BED ON LOWER LOCKED POSITION, KEPT SIDE RAILS UP X 2, CALL LIGHT WITHIN REACH ,WILL COTINUE TO MONITOR PTS.
[2022-10-04] MEDS: SENNOSIDES 8.6 MG TABLET PO SCH (21:34)
[2022-10-05] MEDS: HYDROCODONE/APAP 10/325MG TABLET PO PRN ×5 (02:06→16:27)
[2022-10-05] MEDS: IV LR 1000 ML 1,000 ML IV PRN (03:16)
[2022-10-05 04:00] VITALS: BP 132/87
--- NOTE | 2022-10-05 06:57 | NUR ---
MS rn notes Pts remain in bed awake alert x3 on r/a sating 98% no sob no distress noted on ivf LR at 50cc/hr infusing well .c/o right leg pain , due pain meds given as ordered , will endorse to rn day shift for continuity of care
--- NOTE | 2022-10-05 07:30 | NUR ---
RN MS OPENING NOTE RECEIVED PATIENT AWAKE, IN BED. A/O X 4, ABLE TO VERBALIZED NEEDS. ON ROOM AIR, NO COMPLAIN OF SOB, TOLERATING WELL. FAMILY AT THE BEDSIDE. WITH PUREWICK CONNECTED TO SUCTION MACHINE OF URINE OUTPUT. S/P ORIF ON RIGHT FOOT ,DRESSING DRY INTACT NO BLEEDING NOTED , PTS ABLE TO MOVE HER TOES WITH SENSATION WITH GOOD CIRCULATION , PATIENT IS ON BEDREST. SURGICAL SITE TO RIGHT HIP.INTACT , KEPT BOTH LOWER EXTREMITIES ELEVATED. RIGHT UA MIDLINE NOTED PATENT AND INTACT FLUSHES WELL, WITH LR INFUSING AT 50 ML/HR. SAFETY MEASURES MAINTAINED: BED ON LOWER LOCKED POSITION, KEPT SIDE RAILS UP X 2, CALL LIGHT WITHIN REACH ,PLAN OF CARE CONTINUE.
[2022-10-05 07:39] LABS: BASOPHILS # (AUTO) 0.1 K/uL (0.0-0.2); BASOPHILS % (AUTO) 0.9 % (0.0-2.0); EOSINOPHILS % (AUTO) 1.1 % (0.0-6.0); HEMATOCRIT 30 % (33-45); HEMOGLOBIN 9.9 g/dL (11.5-14.8); LYMPHOCYTES # (AUTO) 2.6 K/uL (0.8-4.8); LYMPHOCYTES % (AUTO) 20.7 % (20.0-44.0); MEAN CORPUSCULAR HGB CONC 33 g/dl (31.0-36.0); MEAN CORPUSCULAR VOLUME 92 fL (82-100); MONOCYTES % (AUTO) 8.1 % (2.0-12.0); NEUTROPHILS # (AUTO) 8.8 K/uL (1.8-8.9); NEUTROPHILS % (AUTO) 69.2 % (43.0-81.0); PLATELET COUNT (AUTO) 537 K/uL (150-450); RED BLOOD CELL COUNT(AUTO) 3.27 MIL/uL (4.0-5.2); WHITE BLOOD COUNT (AUTO) 12.7 K/uL (4.3-11.0)
[2022-10-05] MEDS: CHOLECALCIFEROL 1,000 UNIT TABLET (VIT D3) PO SCH (08:12)
[2022-10-05] MEDS: DOCUSATE SODIUM 100 MG CAPSULE PO SCH ×2 (08:12→16:19)
[2022-10-05] MEDS: ZINC SULFATE 220 MG CAPSULE PO SCH (08:12)
[2022-10-05] MEDS: PANTOPRAZOLE 40 MG TABLET.DR PO SCH (08:12)
[2022-10-05] MEDS: AMLODIPINE BESYLATE 5 MG TABLET PO SCH ×2 (08:13→16:19)
[2022-10-05] MEDS: NEOMY SULF/BACITRAC ZN/POLY 15 GM TUBE TP SCH (08:25)
[2022-10-05 08:50] LABS: CALCIUM, SERUM 8.1 mg/dL (8.5-10.1); CREATININE 0.6 mg/dL (0.6-1.3); MAGNESIUM 2.3 mg/dL (1.8-2.4); PHOSPHORUS 3.5 mg/dL (2.5-4.9); POTASSIUM 3.6 mmol/L (3.5-5.1)
[2022-10-05] MEDS ORDERED: ENOXAPARIN SODIUM 40 MG/0.4 ML DISP.SYRIN SQ SCH (09:00)
[2022-10-05] MEDS: MORPHINE SULFATE INJ 4 MG/ML DISP.SYRIN IV PRN (10:39)
[2022-10-05 12:00] VITALS: BP 132/81
[2022-10-05 13:08] LABS: HEMOGLOBIN 10.7 g/dL (11.5-14.8)
[2022-10-05] MEDS ORDERED: ENOX40DI SQ (13:39)
[2022-10-05] MEDS ORDERED: HYDR-4279 PO (13:40)
[2022-10-05] MEDS: MORPHINE SULFATE INJ 2 MG/ML DISP.SYRIN IV PRN ×2 (13:42→19:35)
[2022-10-05 16:19] VITALS: BP 136/88
--- NOTE | 2022-10-05 18:26 | NUR ---
CALLED [facility] TO GIVE REPORT SPOKE TO PREMA DIAZ CHARGE NURSE. PER PREMA DIAZ CALLED AFTER 1930H, WILL ENDORSE TO SALES STOCK ASSOCIATE NURSE.
--- NOTE | 2022-10-05 18:42 | NUR ---
RN MS CLSOING NOTE PATIENT AWAKE, IN BED. A/O X 4, ABLE TO VERBALIZED NEEDS. ON ROOM AIR, NO COMPLAIN OF SOB, TOLERATING WELL. FAMILY AT THE BEDSIDE. WITH PUREWICK CONNECTED TO SUCTION MACHINE OF URINE OUTPUT. S/P ORIF ON RIGHT FOOT ,DRESSING DRY INTACT NO BLEEDING NOTED , PTS ABLE TO MOVE HER TOES WITH SENSATION WITH GOOD CIRCULATION , PATIENT IS ON BEDREST. SURGICAL SITE TO RIGHT HIP.INTACT , KEPT BOTH LOWER EXTREMITIES ELEVATED. RIGHT UA MIDLINE NOTED PATENT AND INTACT FLUSHES WELL, WITH LR INFUSING AT 50 ML/HR. SAFETY MEASURES MAINTAINED: BED ON LOWER LOCKED POSITION, KEPT SIDE RAILS UP X 2, CALL LIGHT WITHIN REACH. WILL ENDORSE TO NIGHT NURSE FOR ELIZABETH.
--- NOTE | 2022-10-05 19:30 | NUR ---
DISCHARGE INSTRUCTIONS REVIEWED WITH THE PATIENT,CONFIRMED UNDERSTANDING, PATIENT SIGNED ALL DISCHARGE INSTRUCTIONS AND BELONGING LIST. ENDORSE TO CHRISTIE DIAZ.
--- NOTE | 2022-10-05 19:35 | NUR ---
RN NOTE PT NOTED WITH COMPLAIN OF 10/10 PS ON R FOOT, PRN MEDICATION MORPHINE GIVEN ORDERED PER PT'S REQUEST. PT IS ALERT/ORIENTEDX4, VERBALLY RESPONSIVE. VSS.
--- NOTE | 2022-10-05 19:40 | NUR ---
CALLED [facility] AND SPOKE TO JOSE DIAZ AND GAVE REPORT, CONFIRMED UNDERSTANDING. PER JOSE DIAZ TO KEEP THE FADI MIDLINE, INFORMED CHRISTIE DIAZ.
--- NOTE | 2022-10-05 20:00 | NUR ---
CERTIFIED NURSE MIDWIFE NOTE PT DC TO [facility]. PT P/U VIA GURNEY BY [facility] TRANSPORT AMBULANCE, ACCOMPANIED BY 2 PERSONNELS AND FAMILY. PT IS ALERT, ORIENTEDX4, VERBALLY RESPONSIVE. ON ROOM AIR, WELL TOLERATED. NO SOB, NO ACUTE RESP DISTRESS NOTED. AFEBRILE. FADI MIDLINE IN PLACED, PATENT, CDI, TO KEEP MIDLINE IN PLACED PER EMILY GARCIA FROM [facility]. S/P ORIF ON RIGHT FOOT, DRESSING DRY INTACT NO BLEEDING NOTED, PT ABLE TO MOVE TOES WITH SENSATION, WITH GOOD CIRCULATION. SURGICAL SITE TO RIGHT HIP INTACT, L FOOT SPLINT IN PLACED. Addendum: 10/05/22 at 2021 by BRAULIO TIMMONS RN VITAL SIGNS STABLE. BP- 129/72, HR-78, RR- 16, T-98.2
== END 2022-10-05 22:35 | DRG 958 ==
LOC: MEDSG1 17:52
PROVIDERS: ADMIT Nurse Practitioner Acute Care; ATTEND Nurse Practitioner Acute Care
PROC: 05H933Z Insertion of Infusion Device into Right Brachial Vein, Percutaneous Approach (ICD-10-PCS; 2022-09-30)
PROC: 0QSN04Z Reposition Right Metatarsal with Internal Fixation Device, Open Approach (ICD-10-PCS; principal; 2022-10-04)
PROC: 0QSN34Z Reposition Right Metatarsal with Internal Fixation Device, Percutaneous Approach (ICD-10-PCS; 2022-10-04)
DX: S02.2XXA Fracture of nasal bones, initial encounter for closed fracture (principal); S72.91XA Unspecified fracture of right femur, initial encounter for closed fracture; D62 Acute posthemorrhagic anemia; S27.0XXA Traumatic pneumothorax, initial encounter; S12.9XXA Fracture of neck, unspecified, initial encounter; S22.49XA Multiple fractures of ribs, unspecified side, initial encounter for closed fracture; J98.11 Atelectasis; S92.351A Displaced fracture of fifth metatarsal bone, right foot, initial encounter for closed fracture; S92.352A Displaced fracture of fifth metatarsal bone, left foot, initial encounter for closed fracture; V89.2XXA Person injured in unspecified motor-vehicle accident, traffic, initial encounter; Y92.410 Unspecified street and highway as the place of occurrence of the external cause; S92.331A Displaced fracture of third metatarsal bone, right foot, initial encounter for closed fracture; S01.81XA Laceration without foreign body of other part of head, initial encounter; I10 Essential (primary) hypertension; Z98.890 Other specified postprocedural states; S51.801A Unspecified open wound of right forearm, initial encounter
CPT/HCPCS: 36410; 36415; 71045-TC; 73600-TC; 73620-TC; 73630-TC; 73700-TC; 80048-TC; 80053-TC; 83735-TC; 84100-TC; 84703-TC; 85025-TC; 85027-TC; 85730-TC; 86850-TC; 97110-TC; 97112-TC; 97530-TC; A4223; A6253; A6403; C9113; G0378; J0690; J1030; J1100; J1170; J1650; J2175; J2250; J2270; J2370; J2405; J2704; J2765; J2795; J3490; J7030; J7120